=== PATIENT | female | born 1985 | race Caucasian/White ===

== ENCOUNTER → 2018-03-06 08:51 | Outpatient (CLI) | payer OTHER, SELFPAY ==
--- NOTE | 2018-03-06 08:58 | BI_ITS ---
MAMMOGRAPHY - BILATERAL DIAGNOSTIC REASON FOR EXAM: Female, 33 years old. Right upper breast lump and retroareolar breast pain. PERTINENT HISTORY: Non-contributory. TECHNIQUE: Digital bilateral breast paris (3D mammographic acquisition) in the CC and MLO projections. 2-D mediolateral oblique (MLO) and craniocaudad (CC) views of both breasts were obtained. CAD: Full Field Digital Mammography with Computer Added Detection was performed. COMPARISON: None. Baseline examination. FINDINGS: Breast Composition: The breasts are heterogeneously dense, which may obscure small masses. There are no dominant masses or suspicious calcifications. No other significant abnormalities are identified. BI/DIAG MAMM W/CAD, BILAT IMPRESSION: Negative diagnostic mammogram. With the patient's history of right breast pain and right breast lump, correlation with ultrasound is recommended. ASSESSMENT CATEGORY: BIRADS Category 0: Incomplete. Need additional imaging evaluation. A letter regarding these results will be sent to the patient by the facility within 30 days. Approximately 10% of breast cancers are not detected by mammography. A normal mammogram should not delay biopsy of a clinically suspicious abnormality. Electronically Signed: García Astudillo MD at 11:19 EDT Tel [phone], Service support ,
--- NOTE | 2018-03-06 08:58 | US_ITS ---
STUDY: ULTRASOUND BREAST - RIGHT REASON FOR EXAM: Female, 33 years old. Abnormal screening mammogram. TECHNIQUE: Axial and longitudinal images of the RIGHT breast were performed with a high resolution ultrasound transducer. COMPARISON: Comparison is made with prior mammogram done earlier in the day. FINDINGS: RIGHT Breast: There is a 1.1 cm x 0.7 cm x 0.7 cm well-defined hypoechoic nodule at the 2:00 position of the breast at 3 cm from nipple. The borders are slightly lobulated. A biopsy is recommended for further evaluation. IMPRESSION: 1.1 cm x 0.7 cm x 0.7 cm hypoechoic solid nodule with a slightly lobulated margins at the 2:00 position of the breast at 3 cm from the nipple. A biopsy is recommended for further evaluation. ASSESSMENT CATEGORY: BIRADS Category 4: Suspicious - Biopsy Should Be Considered. A letter regarding these results will be sent to the patient by the facility within 30 days. Electronically Signed: García Astudillo MD at 14:37 EDT Tel [phone], Service support , STUDY: ULTRASOUND BREAST - LEFT REASON FOR EXAM: Female, 33 years old. Right breast pain. TECHNIQUE: Axial and longitudinal images of the LEFT breast were performed with a high resolution ultrasound transducer. COMPARISON: Comparison is made with prior mammogram done earlier today. FINDINGS: LEFT Breast: The upper lateral aspect of the left breast was examined by ultrasound. There is homogeneous fibroglandular tissue. No solid or cystic mass lesion is seen. US/Breast Limited Unilateral IMPRESSION: Unremarkable sonogram of the upper lateral quadrant of the left breast. ASSESSMENT CATEGORY: BIRADS Category 1: Negative. A letter regarding these results will be sent to the patient by the facility within 30 days. Electronically Signed: García Astudillo MD at 14:38 EDT Tel [phone], Service support ,
== END ==
PROVIDERS: Visit Provider Obstetrics & Gynecology
DX: N64.4 Mastodynia (principal)
CPT/HCPCS: 76642; 77062; 77066; G0279

== ENCOUNTER → 2018-03-20 13:50 | Outpatient (CLI) | payer OTHER, SELFPAY ==
--- NOTE | 2018-03-20 13:50 | BRBX_PTH ---
PATIENT: MARTA ZHENG [facility][id number] AGE/SX: 40/F ROOM: RE03/20/[address]: Dr. Nicolás Díaz MD : 1985 BED: DIS: SPEC #: [id number] RECD: 03/20/18 15:44 STATUS: JOSIAH CELSO #: [id number] PAMELA: 03/20/18 13:[address]: Nicolás Díaz DEPT: SURGICAL PATHOLOGY RECD BY: Carlos Maguire ENTERED: 03/21/18 08:50 SP TYPE: BREAST BX OTHR DR: Dr. Rodney Diaz MD Tissues: Right breast, NOS Procedures: Surgery Specimen Level IV HEADER OPERATION: Ultrasound-guided right breast biopsy (mammotome) PRE-OP DIAGNOSIS: Abnormal mammogram right breast R92.8 TISSUE SUBMITTED: Right breast biopsy ISCHEMIC TIME: <30 seconds FIXATION TIME: 29.5 hours MICROSCOPIC DIAGNOSIS Right breast, ultrasound-guided mammotome core biopsy: Hyalinized fibroadenoma. Negative for atypia or malignancy. MARILOU:rudy 03/22/18 COMMENT Correlation with clinical, radiologic findings and appropriate follow up are necessary. MICROSCOPIC DESCRIPTION Slides are reviewed. GROSS DESCRIPTION Received in fixative is one container labeled with the patient's name and designated right breast biopsy. The specimen consists of multiple elongated fragments of mcdonnell-yellow fibroadipose tissue that in aggregate measure 1.5 x 1.5 x 0.2 cm. The entire specimen is submitted in one cassette. / MARILOU:rudy 03/21/18 TC:1 CPT: 39026
== END ==
PROVIDERS: Referring Provider Surgery; Visit Provider Surgery
DX: R92.8 Other abnormal and inconclusive findings on diagnostic imaging of breast (principal)
CPT/HCPCS: 88305